=== PATIENT | male | born 1975 | race Caucasian/White ===

== ENCOUNTER 2018-02-02 16:57 | Emergency (ER) | payer BC ==
[~2018-02-02] VITALS: Ht 185.4 cm; Wt 112.2 kg
[2018-02-02] MEDS ORDERED: ONDANSETRON HCL 4 MG ORAL DISINTEGRATING TAB PO ONE (17:15)
[2018-02-02] MEDS ORDERED: AMLODIPINE BESYLATE 10 MG TAB PO ONE (17:15)
[2018-02-02] MEDS ORDERED: KETOROLAC TROMETHAMINE 60 MG/2 ML VIAL IM ONE (17:15)
[2018-02-02] MEDS ORDERED: CLONIDINE HCL 0.1 MG TAB PO ONE (17:15)
[2018-02-02] MEDS ORDERED: CEFTRIAXONE SOD 1 GM VIAL IM ONE (17:15)
[2018-02-02] MEDS ORDERED: ACETAMINOPHEN 325 MG TAB PO ONE (17:15)
[2018-02-02 17:44] VITALS: BP 162/88
== END 2018-02-02 17:47 | disposition home or self-care (01) ==
LOC: FSED 16:57
DX: K02.9 Dental caries, unspecified (principal); R51 Headache
CPT/HCPCS: 96372; 99282; J0696; J1885